=== PATIENT | male | born 1945 | race Two or more races ===

== ENCOUNTER 2020-01-31 08:15 | Emergency (ER) | payer OTHER ==
[~2020-01-31] VITALS: Ht 170.2 cm; Wt 63.5 kg
[2020-01-31] MEDS ORDERED: CICLODAN90 GM (08:31)
[2020-01-31] MEDS ORDERED: ITCH RELIEF15 G1 (08:31)
[2020-01-31] MEDS ORDERED: XOLEGEL45 GM (08:31)
[2020-01-31] MEDS ORDERED: FLUCONAZOLE150 MG PO (14:25)
[2020-01-31] MEDS ORDERED: BACTRIM DS TAB1 EACH PO (14:25)
== END 2020-01-31 14:45 | disposition home or self-care (01) ==
LOC: ER 08:15
DX: L03.116 Cellulitis of left lower limb (principal); L03.115 Cellulitis of right lower limb; I70.293 Other atherosclerosis of native arteries of extremities, bilateral legs; I87.2 Venous insufficiency (chronic) (peripheral); B96.4 Proteus (mirabilis) (morganii) as the cause of diseases classified elsewhere; B95.61 Methicillin susceptible Staphylococcus aureus infection as the cause of diseases classified elsewhere; B96.89 Other specified bacterial agents as the cause of diseases classified elsewhere; Z03.818 Encounter for observation for suspected exposure to other biological agents ruled out; G30.8 Other Alzheimer's disease; F02.80 Dementia in other diseases classified elsewhere, unspecified severity, without behavioral disturbance, psychotic disturbance, mood disturbance, and anxiety

== ENCOUNTER 2020-02-17 10:52 | Emergency (ER) | payer OTHER ==
[~2020-02-17] VITALS: Ht 162.6 cm; Wt 59.0 kg
[~2020-02-17 10:52] MED LIST: BACTRIM DS TAB1 EACH PO; CICLODAN90 GM; FLUCONAZOLE150 MG PO; ITCH RELIEF15 G1; XOLEGEL45 GM
== END 2020-02-17 16:06 | disposition home or self-care (01) ==
LOC: ER 10:52
DX: L03.116 Cellulitis of left lower limb (principal); L03.115 Cellulitis of right lower limb